=== PATIENT | female | born 1985 | race African-American/Black ===

== ENCOUNTER 2018-12-08 11:27 | Emergency (ER) | payer MEDICAID, SELFPAY ==
[2018-12-08 11:30] VITALS: BP 112/69; PULSE 90; RESP 18; TEMP 36.8; O2SAT 99; BMI 18.9
[2018-12-08 11:56] LABS: Internal QC Validated? YES +Cl - CLEAR BKGD; Pregnancy, Serum, hCG Quali. NEGATIVE Negative
[2018-12-08 11:58] LABS: Absolute Lymphocyte Count 2.56 X10^3/uL (0.83-4.51); Absolute Neutrophil Count 3.3 X10^3/uL (2.0-7.7); Basophil# 0.02 X10^3/uL; Basophil% 0.3 % (0-1); Eosinophil# 0.05 X10^3/uL; Eosinophils% 0.8 % (0-5); Hematocrit 44.2 % (37-47); Hemoglobin 14.1 g/dL (12.0-15.0); Lymphocyte # 2.56 X10^3/ul (4.0); Lymphocyte % 40.8 % (19-41); Mean Corp Hgb Conc 31.9 g/dL (32-36); Mean Corpuscular Hgb 27.8 pg (27.0-32.0); Mean Platelet Vol. 11.1 fl (6.2-12.0); Monocyte% 4.8 % (0-10); NRBC Flagged by Analyzer 0 % (0-5); Neutrophil # 3.33 X10^3/uL (2.7-7.7); Neutrophil % 53.1 % (47-70); Platelet Count 214 K/mm3 (150-450); RBC Distribution Width CV 13.8 % (11.6-14.6); RBC Distribution Width SD 44.2 fl (35.1-43.9); Red Blood Count 5.08 M/mm3 (4.2-5.4); White Blood Count 6.3 K/mm3 (4.4-11.0)
[2018-12-08 11:59] LABS: Anion Gap 3 (5-15); BUN 11 mg/dL (7-18); BUN/Creat Ratio 13.4 RATIO (10-20); Calcium,Total 9.3 mg/dL (8.5-10.1); Chloride 109 mmol/L (98-107); Creatinine, Serum 0.82 mg/dL (0.55-1.02); EST Glomerular Filtration Rate 86 mL/min (>60); Est Glom Filt Rate - Afr Amer 104 mL/min (>60); Estimated Creatinine Clearance 82.39 ml/min; Glucose 92 mg/dL (74-106); Potassium 4.4 mmol/L (3.5-5.1); Sodium Level 140 mmol/L (136-145)
[2018-12-08] MEDS: DiphenhydrAMINE 50 MG/ML Syringe 25 MG IV (13:24)
[2018-12-08] MEDS: Metoclopramide 10 MG/2 ML Vial IV (13:24)
--- NOTE | 2018-12-08 16:31 | ED.VISSUMM ---
- ER Visit Summary Date of Service: 12/08/18 Chief Complaint: Headache History of Present Illness: The patient is a 33 F who presents with a headache that began yesterday. Patient states the pain has gradually gotten worse. Patient describes the pain as sharp and tightness. Patient states the headache is diffuse across her head. Patient admits to nausea but denies any vomiting. Patient states she did see some red spots in her vision yesterday. Patient admits to photophobia. Patient denies any loss of vision. Patient denies any paresthesias or weakness. Patient states she had a similar headache in the past but has not had one in a few years. Physical Examination: Vital signs are stable. Patient is afebrile. Patient is in no acute distress. Pupils are equal, round, reactive to light bilaterally. Extraocular muscles are intact. Oral mucosa is pink and moist. Neck is supple. Trachea is midline. There is no JVD noted. Heart was regular rate and rhythm. Lungs are clear and equal bilaterally. Abdomen is soft and nontender. Cranial nerves II through XII are intact. There are no focal motor or sensory deficits noted. Emergency Department Course and Treatment: Patient given IV fluids. Patient was given Reglan and Benadryl. Patient felt better on reevaluation. Patient was instructed to follow-up with her primary care physician in 5 to 7 days. Patient and family understood and were agreeable with the plan. All questions were answered. Disposition: Discharge home Impression: Headache This note was generated with [employer] dictation software. It may contain incorrect words, spelling, and punctuation that were not noted in review of the chart prior to signing ED Disposition - Plan for ED Patient: Disposition: Home or Assisted Living Diagnosis: Headache Instructions: HEADACHE, Unspecified Referrals: Care Physician,No Primary [Primary Care Provider] - Teodoro Walton III, MD [STAFF PHYSICIAN] -
[2018-12-08 16:35] VITALS: BP 113/52; PULSE 74; RESP 16; O2SAT 98
== END 2018-12-08 16:36 | disposition home or self-care (01) ==
PROVIDERS: Emergency Provider Emergency Medicine
DX: R51 Headache (principal); R11.0 Nausea; H53.9 Unspecified visual disturbance; H53.149 Visual discomfort, unspecified; M54.2 Cervicalgia; M54.9 Dorsalgia, unspecified; J45.909 Unspecified asthma, uncomplicated; F17.200 Nicotine dependence, unspecified, uncomplicated
CPT/HCPCS: 80048; 84703; 85025; 96374; 96375; 99284; J7030; A4216